=== PATIENT | female | born 1945 | race Caucasian/White ===

== ENCOUNTER → 2018-12-20 | Outpatient (CLI) | payer MEDICARE ==
--- NOTE | 2018-12-20 15:30 | RADIOLOGY IMAGING REPORT ---
[place] [facility] [place]: Mayelin Lewis : 1945 MR: [id number] V: [id number] EXAM DATE: ORDERING PHYSICIAN: HILARIO BERKOWITZ TECHNOLOG[place] [facility] [place] : 1945 Visit/Account:[id number] Date of Sevice: 12/20/2018 CERVICAL SPINE MIN 4 VIEW HISTORY: AP, lateral, oblique and odontoid views the cervical spine ADDITIONAL HISTORY: Cervical neck pain mainly on right side Findings: Vertebral bodies well-maintained with respect to height and alignment. No compression deformities or fractures. Disc spaces at all levels are well-maintained. Minimal 2 mm retrolisthesis of C5 with r espect to C4. The right oblique views demonstrates 50% foraminal narrowing changes at the C3-4 and C 4-5 levels. Left oblique less than optimally positioned. Appears to be foraminal narrowing changes of at least 50% at the C3-4 and C4-5 levels. Odontoid lateral masses well-maintained. IMPRESSION: 1. 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 A right leg Report Dictated By: Javid Aguero MD at 12/20/2018 3:12 PM Report E-Signed By: Javid Aguero MD at 12/20/2018 3:26 PM WSN:[email or web address]
== END ==
LOC: RAD 11:36
PROVIDERS: ATTEND Nurse Practitioner Family
DX: M47.892 Other spondylosis, cervical region (principal)
CPT/HCPCS: 72050

== ENCOUNTER → 2019-01-25 | Outpatient (CLI) | payer MEDICARE | LOC: LAB 07:45 | PROVIDERS: ATTEND Nurse Practitioner Family | DX: E03.9 Hypothyroidism, unspecified (principal) | CPT/HCPCS: 84443 ==

== ENCOUNTER → 2019-01-25 | Outpatient (CLI) | payer MEDICARE | LOC: LAB 07:48 | PROVIDERS: ATTEND Internal Medicine Nephrology | DX: Z13.9 Encounter for screening, unspecified (principal); E03.8 Other specified hypothyroidism; E06.3 Autoimmune thyroiditis; R79.89 Other specified abnormal findings of blood chemistry | CPT/HCPCS: 36415; 82040; 82310; 82374; 82435; 82465; 82550; 82565; 82570; 82947; 83718; 83970; 84100; 84132; 84156; 84295; 84478; 84520 ==

== ENCOUNTER → 2019-01-31 | Outpatient (CLI) | payer MEDICARE ==
--- NOTE | 2019-01-31 16:22 | RADIOLOGY IMAGING REPORT ---
[place] [facility] [place] NAME: Mayelin Lewis : 1945 MR: [id number] V: [id number] EXAM DATE: ORDERING PHYSICIAN: LOUANN BOLAÑOS TECHNOLOGIST: Location: [facility] Patient: Mayelin Lewis : 1945 Visit/Account:[id number] Date of Sevice: 01/31/2019 KIDNEYS EXAMINATION: Renal ultrasound. History: Elevated creatinine level COMPARISON STUDIES: FINDINGS: Kidneys: Right kidney- 9 x 4.5 x 4.6 cm Left kidney- 9.4 x 4.6 x 4.6 cm Uniform and symmetric blood flow in each kidney by Doppler ultrasound. Hydronephrosis: none There is a slightly lobular contour to both kidneys there is a 1 cm cyst lower pole the left kidney Bladder: Prevoid volume 241 mL. Post void residual 12.6 mm. Bilateral ureteral jets are present Abdominal aorta and IVC: Aorta and IVC are patent by Doppler ultrasound. IMPRESSION: 1 cm lower pole left renal cyst Report Dictated By: Cassandra Simmons MD at 01/31/2019 4:15 PM Report E-Signed By: Cassandra Simmons MD at 01/31/2019 4:17 PM WSN:[email or web address]
== END ==
LOC: US 01:05
PROVIDERS: ATTEND Internal Medicine Nephrology
DX: N28.1 Cyst of kidney, acquired (principal)
CPT/HCPCS: 76705

== ENCOUNTER → 2019-03-03 | Outpatient (CLI) | payer MEDICARE ==
--- NOTE | 2019-03-10 17:00 | RADIOLOGY IMAGING REPORT ---
[place] [facility] [place] NAME: SIENA RUBIN : [id number] MR: [id number] V: [id number] EXAM DATE: [id number] ORDERING PHYSICIAN: HILARIO BERKOWITZ TECHNOLOGIST: Willow Quintero PROCEDURE: BILATERAL DIGITAL SCREENING MAMMOGRAM WITH CAD ASSISTED INTERPRETATION & 3D TOMOSYNTHESIS REASON FOR STUDY: Screening. FAMILY HISTORY OF BREAST CANCER: None. BREAST PROCEDURES/TREATMENTS: None. COMPARISON: 08/06/17, 03/19/15, 07/06/14, 06/24/12, , 06/17/10, , 06/15/09, 06/06/08. VIEWS OBTAINED: 2D & 3D full field CC & MLO. BREAST DENSITY: The breasts are heterogeneously dense which can obscure small masses. MAMMOGRAM FINDINGS: The parenchymal pattern has remained stable allowing for difference in mammographic technique & patient positioning. IMPRESSION: BIRADS 1: Negative. DIAGNOSTIC CATEGORY 1--NEGATIVE. RECOMMENDATIONS: ROUTINE MAMMOGRAM AND CLINICAL EVALUATION. Dictated by: Cassandra Simmons M.D. on 03/10/2019 at 8:53 Transcribed by: PRATEEK on 03/10/2019 at 10:39 Approved by: Cassandra Simmons M.D. on 03/10/2019 at 17:00 [facility]
== END ==
LOC: MAMO 01:33
PROVIDERS: ATTEND Nurse Practitioner Family
DX: Z12.31 Encounter for screening mammogram for malignant neoplasm of breast (principal)
CPT/HCPCS: 77063; 77067

== ENCOUNTER 2019-04-14 10:21 | Emergency (ER) | payer MEDICARE ==
[2019-04-14 10:41] VITALS: BP 83/64
[2019-04-14] MEDS ORDERED: MECLIZINE HCL 25 MG TAB PO ONE ×2 (10:55→14:50)
[2019-04-14] MEDS ORDERED: ONDANSETRON 4 MG/2 ML VIAL IVP ONE (10:55)
[2019-04-14 11:03] LABS: PLATELET COUNT, AUTOMATED 245 K/uL (150-450)
[2019-04-14] MEDS ORDERED: IOPAMIDOL 76% 100 ML INFUS BTL 100 ML ONE (11:05)
[2019-04-14] MEDS ORDERED: NS(*) 0.9% 50 ML BAG 50 ML ONE (11:05)
--- NOTE | 2019-04-14 11:29 | ER Report ---
History and Physical Time Seen By MD: 10:20 Hx. of Stated Complaint: pt dizzy since yesterday, fell due to dizziness HPI/ROS CHIEF COMPLAINT: Vertigo HISTORY OF PRESENT ILLNESS: 73-year-old female has had vertigo since yesterday. She states she is falling to the left. She has not completely fallen though she did lean into the sink to help steady her. She woke with these symptoms yesterday. The gradually went away yesterday afternoon. She woke early this morning with same symptoms. She has not had any recent trauma. She has had pain on the right side of her neck and has been evaluated by the orthopedic surgeon as well as had PT for this. Last PT was one month ago. She has had no chiropractor. She has never had similar symptoms. She has no ringing in her ears or hearing loss. She has nausea. She has no blurred vision or double vision. She has no chest pain or trouble breathing. She has had no change in urination. She has had no recent travel. She has no slurred speech or focal weakness. No recent illnesses. REVIEW OF SYSTEMS: Constitutional: No fever, no chills. Eyes: No discharge. ENT: No sore throat. Cardiovascular: No chest pain, no palpitations. Respiratory: No cough, no shortness of breath. Gastrointestinal: No abdominal pain, no vomiting. Genitourinary: No hematuria. Musculoskeletal: No back pain; neck pain as above Skin: No rashes. Neurological: above Remainder of the 14 system rev: Yes Allergies: Coded Allergies: No Known Drug Allergies (Unverified , 04/14/19) Home Meds Active Scripts Ondansetron Hcl (ZOFRAN) 4 Mg Tablet, 4 MG PO Q8H for Nausea, #10 TAB Prov:ERIC COREY MD 04/14/19 Diazepam (VALIUM) 2 Mg Tablet, 2 MG PO Q8H for vertigo, #10 TAB Prov:ERIC COREY MD 04/14/19 Reported Medications Levothyroxine Sodium (SYNTHROID) 25 Mcg Tablet, 25 MCG PO QDAY 04/14/19 Reviewed Nurses Notes: Yes Constitutional Vital Sign - Last 24 Hours 04/14/19 04/14/19 04/14/19 04/14/19 10:41 12:30 13:00 13:30 Temp 97.8 Pulse 80 ??? 88 ??? Resp 20 12 B/P (MAP) 83/64 Pulse Ox 92 97 O2 Delivery Room Air 04/14/19 04/14/19 04/14/19 04/14/19 14:00 14:30 15:00 16:00 Pulse 90 87 96 90 Resp 8 11 25 16 Pulse Ox 98 97 98 04/14/19 04/14/19 16:30 17:00 Pulse 84 83 Resp 12 14 Pulse Ox 98 98 Physical Exam General Appearance: The patient is alert, has no immediate need for airway protection and no signs of toxicity. Eyes: Pupils equal and round no pallor or injection. nystagmus noted when turning to left ENT, Mouth: Mucous membranes are moist. Respiratory: There are no retractions, lungs are clear to auscultation. Cardiovascular: Regular rate and rhythm. no m/r/g. No carotid bruit Gastrointestinal: Abdomen is soft and non tender, no masses, bowel sounds normal. Neurological: alert, oriented x 4, cn ii-xii intact. FNF; mild tremor bilat, slight dysmetria on left. + truncal ataxia. Nl HSK. No ddk. Skin: Warm and dry, no rashes. Musculoskeletal: Neck is supple non tender midline; pt has ttp r occipital prominence. Extremities are nontender, nonswollen and have full range of motion. DIFFERENTIAL DIAGNOSIS: After history and physical exam differential diagnosis was considered for cva, cerebellar lesion, vertebral artery dissection, peripheral etiology of vertigo, or other emergent etiology. Medical Decision Making Data Points Result Diagram: 04/14/19 1032 04/14/19 1032 Laboratory Hematology Test 04/14/19 10:32 White Blood Count 7.8 k/uL (4.5-11.0) Red Blood Count 4.51 M/uL (4.17-5.56) Hemoglobin 14.0 g/dL (12.0-16.0) Hematocrit 41.2 % (34.0-47.0) Mean Corpuscular Volume 91.5 fL (80.0-96.0) Mean Corpuscular Hemoglobin 31.1 pg (26.0-33.0) Mean Corpuscular Hemoglobin Concent 34.0 g/dL (32.0-36.0) Red Cell Distribution Width 13.0 % (11.5-14.5) Platelet Count 245 K/uL (150-450) Mean Platelet Volume 8.9 fL (7.2-11.1) Neutrophils (%) (Auto) 64.5 % (39.4-72.5) Lymphocytes (%) (Auto) 30.0 % (17.6-49.6) Monocytes (%) (Auto) 4.3 % (4.1-12.4) Eosinophils (%) (Auto) 0.5 % (0.4-6.7) Basophils (%) (Auto) 0.7 % (0.3-1.4) Nucleated RBC Relative Count (auto) 0.1 /100WBC Neutrophils # (Auto) 5.0 K/uL (2.0-7.4) Lymphocytes # (Auto) 2.3 K/uL (1.3-3.6) Monocytes # (Auto) 0.3 K/uL (0.3-1.0) Eosinophils # (Auto) 0.0 K/uL (0.0-0.5) Basophils # (Auto) 0.1 K/uL (0.0-0.1) Nucleated RBC Absolute Count (auto) 0.00 K/uL Chemistry Test 04/14/19 10:32 Sodium Level 139 mmol/L (137-145) Potassium Level 3.9 mmol/L (3.5-5.0) Chloride Level 106 mmol/L (98-107) Carbon Dioxide Level 21 mmol/L (22-31) Blood Urea Nitrogen 20 mg/dl (7-18) Creatinine 1.10 mg/dl (0.52-1.04) Glomerular Filtration Rate Calc 49.0 Random Glucose 119 mg/dl (75-110) Calcium Level 9.3 mg/dl (8.4-10.2) Total Bilirubin 0.6 mg/dl (0.2-1.3) Aspartate Amino Transf (AST/SGOT) 20 U/L (0-35) Alanine Aminotransferase (ALT/SGPT) 28 U/L (0-56) Alkaline Phosphatase 58 U/L (0-126) Troponin I < 0.012 ng/ml Total Protein 7.3 g/dl (6.3-8.2) Albumin 4.1 g/dl (3.5-5.0) Urinalysis Test 04/14/19 12:03 Urine Color Yellow Urine Clarity Clear Urine pH 8.0 pH (4.8-9.5) Urine Specific [place] 1.014 Urine Protein Negative mg/dL (NEGATIVE) Urine Glucose (UA) Negative mg/dL (NEGATIVE) Urine Ketones Negative mg/dL (NEGATIVE) Urine Blood Negative (NEGATIVE) Urine Nitrite Negative (NEGATIVE) Urine Bilirubin Negative (NEGATIVE) Urine Urobilinogen Negative mg/dL (0.2-1.9) Urine Leukocyte Esterase Negative (NEGATIVE) Urine RBC 1 /HPF (0-2/HPF) Urine WBC 2 /HPF (0-5/HPF) Urine Squamous Epithelial Cells Many /LPF (</=FEW) Urine Bacteria Negative /HPF (NONE-FEW) Urine Mucus None /HPF (NONE-FEW) EKG/Imaging EKG Interpretation 12 lead EKG: Rhythm: Normal sinus rhythm Curlew: Normal QRS: Normal ST segments: Normal Monitor Interpretation: Normal Sinus Rhythm ED Course/Re-evaluation ED Course 73-year-old female presents with vertigo. Vertigo was sudden onset yesterday m orning, resolved, and has returned. It is associated with nausea though without hearing changes. Her onset of symptoms and severity of more consistent with peripheral, she also has associated neck pain and I considered vertebral artery dissection or cerebellar etiology as the cause. Patient's exam is most consistent with peripheral etiology. CT and CTA are unremarkable. I discussed vertebral artery finding with radiologist who notes no aneurysm or dissection. Patient improved after medications. She improved after Simona maneuver as well. At this point, is most likely peripheral with low likelihood for central etiology and I do not think MRI is indicated at this time. We'll discharge with strict return precautions. Patient and family are comfortable with this plan. Decision to Disposition Date: Apr 14, 2019 Decision to Disposition Time: 16:46 Depart Departure Latest Vital Signs Vital Signs Date Time Temp Pulse Resp B/P (MAP) Pulse Ox O2 Delivery O2 Flow Rate FiO2 04/14/19 17:00 83 14 98 04/14/19 10:41 97.8 83/64 Room Air Impression: Primary Impression: Vertigo Condition: Improved Disposition: HOME OR SELF-CARE Referrals: HILARIO BERKOWITZ (PCP) 5 Days New Scripts Ondansetron Hcl (ZOFRAN) 4 Mg Tablet 4 MG PO Q8H for Nausea, #10 TAB Prov: ERIC COREY MD 7/11/19 Diazepam (VALIUM) 2 Mg Tablet 2 MG PO Q8H for vertigo, #10 TAB Prov: ERIC COREY MD 04/14/19 Patient Instructions: Vertigo (ED) Additional Instructions: As we discussed, please return immediately for worsening or uncontrolled symptoms, new weakness, visual loss, difficulty speaking or swallowing, or any concerns. Follow up with your primary doctor for referral to an ENT doctor, if symptoms continue. ERIC COREY MD Apr 14, 2019 11:29
[2019-04-14] MEDS ORDERED: NS(*) 0.9% 1000 ML BAG 1,000 ML IV ONE (11:30)
--- NOTE | 2019-04-14 13:21 | RADIOLOGY IMAGING REPORT ---
FACILITY: [facility] - [place] PATIENT NAME: Mayelin Lewis : 1945 MR: [id number] V: [id number] EXAM DATE: ORDERING PHYSICIAN: ERIC COREY TECHNOLOGIST: Location: [facility] Patient: Mayelin Lewis : 1945 Visit/Account:[id number] Date of Sevice: 04/14/2019 EXAMINATION: CT head without IV contrast CTA neck with IV contrast CTA head with IV contrast HISTORY: Vertigo, central findings COMPARISON: None. TECHNIQUE: Axial noncontrast images are taken from the skull base through the vertex. Sagittal and coronal reformatted images are also submitted. Overlapping thin sections were obtained during a yareli us of IV contrast from the aortic arch through the vertex. Reconstruction of the source data set incl udes multiplanar 2D in the bilateral oblique planes, and 3D sagittal and coronal thin slab MIP series . Kindergarten Teacher images have been stored on PACS. Stenosis of the internal carotid arteries are calc ulated using NASCET criteria. CONTRAST: 75 mL of IV Isovue-370 One of the following dose optimization techniques was utilized in the performance of this exam: Autom ated exposure control; adjustment of the mA and/or kV according to the patient's size; or use of an i terative reconstruction technique. Specific details can be referenced in the facility's radiology C T exam operational policy. FINDINGS: CT HEAD: Brain volume: Normal. Ventricles: Normal. Acute ischemic changes: None. Hemorrhage: None. Masses/edema: None. Graham-white: Negative. White matter: Normal. Vessels: Negative. Extra-axial: Negative. Calvarium/scalp: Negative. Skull base/visualized face: Negative. Visualized sinuses/orbits: Chronic mucoperiosteal wall thickening in the paranasal sinuses and posts urgical changes including ethmoidectomies and maxillary antrostomies. CTA: Aortic arch and great vessels: Negative. Right CCA/ICA: Negative. Left CCA/ICA: Negative. Vertebrobasilar: There is luminal irregularity of the right vertebral artery scattered throughout t he V2 and most notably within the V3 segment. No evidence of dissection or hemodynamically significan t stenosis. The intracranial segment of the right vertebral artery is intact. The left vertebral wicho ry is congenitally nondominant and tortuous but without focal abnormality. [place]: Negative. SAHIL circulation: Negative. MCA circulation: Negative. COURT TRANSCRIBER circulation: Negative. Additional non-angiographic findings: None significant. IMPRESSION: 1. Unremarkable CT scan of the brain. 2. Luminal irregularity of the cervical right vertebral artery suggestive of fibromuscular dysplasia. This may predispose the vessel to dissection however no evidence of acute abnormality at this time. The left vertebral artery is nondominant and mildly tortuous, likely related to age but without focal abnormality. 3. Unremarkable appearance of the carotid arteries. Report Dictated By: ANA M BAILEY at 04/14/2019 12:59 PM Report E-Signed By: ANA M BAILEY at 04/14/2019 1:14 PM WSN:[email or web address]
--- NOTE | 2019-04-14 13:22 | RADIOLOGY IMAGING REPORT ---
[place]AC[place] [facility] [place]IENT NAME: Mayelin Lewis : 1945 MR: [id number] V: [id number] EXAM DATE: ORDERING PHYSICIAN: ERIC COREY TECHNOLOGIST: Location: [facility] Patient: Mayelin Lewis : 1945 Visit/Account:[id number] Date of Sevice: 04/14/2019 EXAMINATION: CT head without IV contrast CTA neck with IV contrast CTA head with IV contrast HISTORY: Vertigo, central findings COMPARISON: None. TECHNIQUE: Axial noncontrast images are taken from the skull base through the vertex. Sagittal and coronal reformatted images are also submitted. Overlapping thin sections were obtained during a yareli us of IV contrast from the aortic arch through the vertex. Reconstruction of the source data set incl udes multiplanar 2D in the bilateral oblique planes, and 3D sagittal and coronal thin slab MIP series . Airplane Technician images have been stored on PACS. Stenosis of the internal carotid arteries are calc ulated using NASCET criteria. CONTRAST: 75 mL of IV Isovue-370 One of the following dose optimization techniques was utilized in the performance of this exam: Autom ated exposure control; adjustment of the mA and/or kV according to the patient's size; or use of an i terative reconstruction technique. Specific details can be referenced in the facility's radiology C T exam operational policy. FINDINGS: CT HEAD: Brain volume: Normal. Ventricles: Normal. Acute ischemic changes: None. Hemorrhage: None. Masses/edema: None. Graham-white: Negative. White matter: Normal. Vessels: Negative. Extra-axial: Negative. Calvarium/scalp: Negative. Skull base/visualized face: Negative. Visualized sinuses/orbits: Chronic mucoperiosteal wall thickening in the paranasal sinuses and posts urgical changes including ethmoidectomies and maxillary antrostomies. CTA: Aortic arch and great vessels: Negative. Right CCA/ICA: Negative. Left CCA/ICA: Negative. Vertebrobasilar: There is luminal irregularity of the right vertebral artery scattered throughout t he V2 and most notably within the V3 segment. No evidence of dissection or hemodynamically significan t stenosis. The intracranial segment of the right vertebral artery is intact. The left vertebral wicho ry is congenitally nondominant and tortuous but without focal abnormality. [place]: Negative. SAHIL circulation: Negative. MCA circulation: Negative. GROUNDS MAINTENANCE SUPERVISOR circulation: Negative. Additional non-angiographic findings: None significant. IMPRESSION: 1. Unremarkable CT scan of the brain. 2. Luminal irregularity of the cervical right vertebral artery suggestive of fibromuscular dysplasia. This may predispose the vessel to dissection however no evidence of acute abnormality at this time. The left vertebral artery is nondominant and mildly tortuous, likely related to age but without focal abnormality. 3. Unremarkable appearance of the carotid arteries. Report Dictated By: ANA M BAILEY at 04/14/2019 12:59 PM Report E-Signed By: ANA M BAILEY at 04/14/2019 1:14 PM WSN:[email or web address]
--- NOTE | 2019-04-14 13:23 | RADIOLOGY IMAGING REPORT ---
FACILITY: [facility] PATIENT NAME: Mayelin Lewis : 1945 MR: [id number] V: [id number] EXAM DATE: ORDERING PHYSICIAN: ERIC COREY TECHNOLOGIST: Location: [facility] [place] Patient: Mayelin Lewis : 1945 Visit/Account:[id number] Date of Sevice: 04/14/2019 EXAMINATION: CT head without IV contrast CTA neck with IV contrast CTA head with IV contrast HISTORY: Vertigo, central findings COMPARISON: None. TECHNIQUE: Axial noncontrast images are taken from the skull base through the vertex. Sagittal and coronal reformatted images are also submitted. Overlapping thin sections were obtained during a yareli us of IV contrast from the aortic arch through the vertex. Reconstruction of the source data set incl udes multiplanar 2D in the bilateral oblique planes, and 3D sagittal and coronal thin slab MIP series . Touch Up Painter Hand images have been stored on PACS. Stenosis of the internal carotid arteries are calc ulated using NASCET criteria. CONTRAST: 75 mL of IV Isovue-370 One of the following dose optimization techniques was utilized in the performance of this exam: Autom ated exposure control; adjustment of the mA and/or kV according to the patient's size; or use of an i terative reconstruction technique. Specific details can be referenced in the facility's radiology C T exam operational policy. FINDINGS: CT HEAD: Brain volume: Normal. Ventricles: Normal. Acute ischemic changes: None. Hemorrhage: None. Masses/edema: None. Graham-white: Negative. White matter: Normal. Vessels: Negative. Extra-axial: Negative. Calvarium/scalp: Negative. Skull base/visualized face: Negative. Visualized sinuses/orbits: Chronic mucoperiosteal wall thickening in the paranasal sinuses and posts urgical changes including ethmoidectomies and maxillary antrostomies. CTA: Aortic arch and great vessels: Negative. Right CCA/ICA: Negative. Left CCA/ICA: Negative. Vertebrobasilar: There is luminal irregularity of the right vertebral artery scattered throughout t he V2 and most notably within the V3 segment. No evidence of dissection or hemodynamically significan t stenosis. The intracranial segment of the right vertebral artery is intact. The left vertebral wicho ry is congenitally nondominant and tortuous but without focal abnormality. [place]: Negative. SAHIL circulation: Negative. MCA circulation: Negative. VACUUM TRUCK DRIVER circulation: Negative. Additional non-angiographic findings: None significant. IMPRESSION: 1. Unremarkable CT scan of the brain. 2. Luminal irregularity of the cervical right vertebral artery suggestive of fibromuscular dysplasia. This may predispose the vessel to dissection however no evidence of acute abnormality at this time. The left vertebral artery is nondominant and mildly tortuous, likely related to age but without focal abnormality. 3. Unremarkable appearance of the carotid arteries. Report Dictated By: ANA M BAILEY at 04/14/2019 12:59 PM Report E-Signed By: ANA M BAILEY at 04/14/2019 1:14 PM WSN:[email or web address]
[2019-04-14] MEDS ORDERED: LEVO25TA57 PO (13:32)
--- NOTE | 2019-04-14 13:42 | EKG ---
FACILITY: [facility] - [place] PATIENT NAME: SIENA RUBIN : [id number] MR: [id number] V: [id number] EXAM DATE: ORDERING PHYSICIAN: ERIC COREY TECHNOLOGIST: SHIRA Test Reason : HEAD,NECK PAIN Blood Pressure : / mmHG Vent. Rate : 073 BPM Atrial Rate : 073 BPM P-R Int : 164 ms QRS Dur : 070 ms QT Int : 384 ms P-R-T Axes : 067 -05 064 degrees QTc Int : 423 ms Normal sinus rhythm Low voltage QRS Borderline ECG No previous ECGs available Confirmed by Romero Peter ([id number]) on 04/14/2019 10:36:41 PM Referred By: MADHAV Confirmed By:Romero Garcia
[2019-04-14] MEDS ORDERED: DIAZEPAM 50 MG/10 ML MDV IVP ONE (15:50)
[2019-04-14] MEDS ORDERED: ONDA4TAB97 PO (17:05)
[2019-04-14] MEDS ORDERED: DIAZ2TAB72 PO (17:05)
== END 2019-04-14 17:10 | disposition home or self-care (01) ==
LOC: ER 10:51
DX: R42 Dizziness and giddiness (principal)
CPT/HCPCS: 70450; 70496; 70498; 81001; 84484; 85025; 93005; 96361; 96374; 96375; 99284; J2405; J3360; J7030; J7050; J8597; Q9967; 82040; 82247; 82310; 82374; 82435; 82565; 82947; 84075; 84132; 84155; 84295; 84450; 84460; 84520